=== PATIENT | female | born 1995 | race Caucasian/White ===

== ENCOUNTER 2022-05-15 10:34 | Outpatient (CLI) | payer MEDICAID, SELFPAY ==
--- NOTE | ~2022-05-15 | US_ITS ---
EXAMINATION: US OB follow up DATE: 05/15/2022 13:03 INDICATION: Amenorrhea. Positive test. TECHNIQUE: Real-time ultrasound of the pelvis was performed. COMPARISON: None. FINDINGS: There is a single living fetus in vertex presentation. The placenta is posterior and fundal. h eart rate is 138 beats per minute (bpm). The amniotic fluid index is 18.6 cm, which is normal, which is normal. The following biometric data were obtained: Biparietal diameter (BPD): 8.4 cm; head circumference (HC): 30.0 cm; abdominal circumference (AC): 30 .7 cm; femur length (FL): 6.3 cm. These measurements are concordant. Estimated weight is 2283 g +/- 342 g, which correlates with the >97th percentile when 10/07/22 is used as estimated date of delivery. As single measurements, these parameters are each equal to the following estimated gestational ages: BPD: 34 weeks 0 days. HC: 33 weeks 2 days. AC: 34 weeks 4 days. FL: 32 weeks 3 days. estimated gestational age based solely on measurements from this exam is 33 weeks 4 days +/- 2 weeks 2 days with estimated date of delivery of 06/29/22. IMPRESSION: 1. Single living fetus in vertex presentation. 2. Large for gestational age. estimated gestational age based solely on measurements from this exam is 33 weeks 4 days +/- 2 weeks 2 days with estimated date of delivery of 06/29/22. Reviewed, dictated and finalized at location [facility] IMPRESSION: 1. Single living fetus in vertex presentation. 2. Large for gestational age. estimated gestational age based solely on measurements from this exam is 33 weeks 4 days +/- 2 weeks 2 days with estimate d date of delivery of 06/29/22.
[2022-05-15 11:11] LABS: Basophils Absolute Auto 0.03 K/mm3 (0.00-0.10); Basophils Percent Auto 0.4 % (0.0-1.0); Eosinophils Percent Auto 1.3 % (1.0-6.0); Hematocrit 42.9 % (35.0-49.0); Hemoglobin 14.5 g/dL (12.0-15.0); Immature Granulocyte Absolute 0.04 K/mm3 (0.00-0.00); Immature Granulocyte Percent A 0.5 % (0.0-0.0); Lymphocytes Percent Auto 27.7 % (18.0-42.0); Mean Corpuscular HGB Conc 33.8 g/dL (32.0-36.0); Mean Corpuscular Hemoglobin 28.6 pg (27.0-31.0); Mean Corpuscular Volume 84.6 fL (78.0-102.0); Monocytes Absolute Auto 0.54 K/mm3 (0.10-0.90); Monocytes Percent Auto 6.8 % (2.0-11.0); Neutrophils Percent Auto 63.3 % (50.0-70.0); Platelet Count Result 222 K/mm3 (150-420); Red Blood Count 5.07 M/mm3 (4.20-5.40); Red Cell Distribution Width 12.3 % (11.6-14.4); White Blood Count 7.9 K/mm3 (4.8-10.8)
[2022-05-15 11:53] LABS: Alanine Aminotransferase 21 U/L (14-59); Albumin Level 2.6 g/dL (3.4-5.0); Alkaline Phosphatase 141 U/L (46-116); Anion Gap 5 mmol/L (8-16); Aspartate Amino Transferase 17 U/L (15-37); Bilirubin,Total 0.4 mg/dL (0.00-1.00); Blood Urea Nitrogen 12 mg/dL (7-18); Calcium 9.4 mg/dL (8.5-10.1); Carbon Dioxide 27 mmol/L (21-32); Chloride 105 mmol/L (98-108); Estimated Glomerular Filt Rate > 60; Glucose 91 mg/dL (70-99); Osmolality Calculated 283 mOsm/kg (285-295); Potassium 4.6 mmol/L (3.5-5.1); Sodium 137 mmol/L (136-145); Thyroid Stimulating Hormone 3.94 uIU/mL (0.36-3.74); Total Protein 6.2 g/dL (6.4-8.2)
[2022-05-17 17:23] LABS: Vitamin D 25 Hydroxy 16 ng/mL (30-100)
== END 2022-05-15 10:35 | disposition home or self-care (01) ==
PROVIDERS: PCP Internal Medicine; Visit Provider Nurse Practitioner Family
DX: Z36.9 Encounter for antenatal screening, unspecified (principal); O36.63X0 Maternal care for excessive fetal growth, third trimester, not applicable or unspecified
CPT/HCPCS: 36415; 76816; 80053; 82306; 84439; 84443; 84702; 85025; 86850; 86900; 86901

== ENCOUNTER 2022-05-17 19:18 | Emergency (ER) | payer MEDICAID, SELFPAY ==
[2022-05-17 19:27] VITALS: BP 172/106; PULSE 98; RESP 18; TEMP 36.7; O2SAT 98
[2022-05-17 19:44] VITALS: O2SAT 100
[2022-05-17 19:45] VITALS: O2SAT 99
[2022-05-17 19:46] VITALS: BP 150/105; O2SAT 99
[2022-05-17 19:49] VITALS: PULSE 98
[2022-05-17] MEDS: LABETALOL HCL 50 MG TABLET PO (19:49)
[2022-05-17 19:50] LABS: Basophils Absolute Auto 0.03 K/mm3 (0.00-0.10); Basophils Percent Auto 0.4 % (0.0-1.0); Eosinophils Absolute Auto 0.09 K/mm3 (0.02-0.50); Eosinophils Percent Auto 1.1 % (1.0-6.0); Hematocrit 42.7 % (35.0-49.0); Hemoglobin 14.6 g/dL (12.0-15.0); Immature Granulocyte Absolute 0.04 K/mm3 (0.00-0.00); Immature Granulocyte Percent A 0.5 % (0.0-0.0); Lymphocytes Absolute Auto 2.73 K/mm3 (1.10-4.50); Lymphocytes Percent Auto 32.7 % (18.0-42.0); Mean Corpuscular HGB Conc 34.2 g/dL (32.0-36.0); Mean Corpuscular Hemoglobin 28.8 pg (27.0-31.0); Mean Corpuscular Volume 84.2 fL (78.0-102.0); Mean Platelet Volume 11.9 fl (9.2-11.8); Monocytes Percent Auto 7.2 % (2.0-11.0); Neutrophils Absolute Auto 4.9 K/mm3 (1.7-7.2); Neutrophils Percent Auto 58.1 % (50.0-70.0); Platelet Count Result 223 K/mm3 (150-420); Red Blood Count 5.07 M/mm3 (4.20-5.40); Red Cell Distribution Width 12.3 % (11.6-14.4); White Blood Count 8.4 K/mm3 (4.8-10.8)
[2022-05-17 20:04] LABS: INR 0.9; Partial Thromboplastin Time 27.2 SEC (23.90-30.70); Prothrombin Time 10.3 Seconds (9.50-12.10)
[2022-05-17 20:06] LABS: Alanine Aminotransferase 21 U/L (14-59); Albumin Level 2.6 g/dL (3.4-5.0); Alkaline Phosphatase 141 U/L (46-116); Anion Gap 10 mmol/L (8-16); Aspartate Amino Transferase 17 U/L (15-37); Bilirubin,Total 0.4 mg/dL (0.00-1.00); Blood Urea Nitrogen 9 mg/dL (7-18); Calcium 9.2 mg/dL (8.5-10.1); Carbon Dioxide 24 mmol/L (21-32); Chloride 103 mmol/L (98-108); Estimated CRCL calculation 184 ml/min; Estimated Glomerular Filt Rate > 60; Glucose 90 mg/dL (70-99); Lactate Dehydrogenase 215 U/L (81-234); Osmolality Calculated 282 mOsm/kg (285-295); Sodium 137 mmol/L (136-145); Total Protein 6.7 g/dL (6.4-8.2); Uric Acid 5.9 mg/dL (2.6-6.0)
--- NOTE | 2022-05-17 20:13 | ED.GENADULT ---
HPI - General Adult General Chief complaint: Unspecified Stated complaint: high blood pressure and Source: patient and family Mode of arrival: ambulatory Limitations: no limitations History of Present Illness HPI narrative: is a 27-year-old female with some elevated blood pressure is currently 8 months and is due in June blood pressure has initially you have has been in the 150s to 170 systolic, the patient currently is asymptomatic with no headache no blurry vision no nausea vomiting no abdominal pain no flank pain no dysuria no chest pain or shortness of breath. Onset (ago): hour(s) Related Data Allergies Allergy/AdvReac Type Severity Reaction Status Date / Time No Known Allergies Allergy Verified 05/17/22 19:56 Review of Systems Review of Systems: All systems reviewed & are unremarkable except as noted in HPI and below PMFSH Past Medical History Medical History Hypertension affecting Exam Const: General: cooperative, healthy appearing, comfortable, no acute distress, well developed, alert and awake HENMT: Head: normal to inspection Ears: hearing grossly normal bilaterally Face/Nose/Sinus: Normal external nose present Face and sinus: normal facial exam Mouth: Yes Normal oral and palatal mucosa present Throat: posterior oropharynx normal Eyes: General: appearance normal, both eyes and all related structures Visual Coronado: normal visual coronado by confrontation Alignment and Position: alignment normal Periorbital: periorbital findings normal Eyelids: eyelids normal Conjunctivae: conjunctivae normal Sclera: sclerae normal Pupils: Equal, round and reactive pupils present EOM: EOMs intact bilaterally Neck: Neck: normal visual inspection, full ROM, no lymphadenopathy and no meningeal signs Chest: Chest palpation & inspection: normal inspection of the chest and normal palpation of entire chest wall Resp: Effort & Inspection: normal respiratory effort and able to speak in complete sentences Auscultation: clear to auscultation bilaterally Cardio: Jugular venous distension: no JVD Palpation: normal PMI Rate: regular rate Rhythm: regular rhythm Heart sounds: S1 normal heart sound present and S2 normal heart sound present GI: Inspection: normal to inspection : General: Yes bimanual renal exam normal bilaterally Urinary Catheter: Urinary Catheter: patent and draining Back/Spine/Pelvis: Back: no CVA tenderness Skin: General skin exam: normal color and no rashes or lesions noted Neuro: General: oriented to person, oriented to place, oriented to time and patient oriented x3 Extrem: General: normal to inspection, full ROM and capillary refill normal Right lower extremity: normal to inspection, full ROM and normal capillary refill Psych: Appearance: grossly normal Mental Status: mental status grossly normal Speech and movement: Normal speech and movement present Course Course Emergency Course: blood pressure has improved down to 149 systolic after she received a dose of p.o. labetalol, labs reviewed with patient and family which showed no evidence of HELLP syndrome, no evidence of preeclampsia patient is more comfortable and advised follow-up with geochemical manager. Vital Signs Vital signs: Vital Signs Temperature 36.7 C 05/17/22 19:27 Pulse Rate 98 05/17/22 19:27 Respiratory Rate 18 05/17/22 19:27 Blood Pressure 172/106 H 05/17/22 19:27 Pulse Oximetry 98 05/17/22 19:27 Oxygen Delivery Room Air 05/17/22 19:27 Temperature 36.7 C 05/17/22 19:27 Pulse Rate 98 05/17/22 19:49 Respiratory Rate 18 05/17/22 19:27 Blood Pressure 150/105 H 05/17/22 19:46 Pulse Oximetry 99 05/17/22 19:46 Oxygen Delivery Room Air 05/17/22 19:27 Medical Decision Making Vital Signs Vital Signs: Vital Signs Temperature 36.7 C 05/17/22 19:27 Pulse Rate 98 05/17/22 19:27 Respiratory Rate 18 0
[2022-05-17 20:29] VITALS: BP 132/106; PULSE 90; RESP 20; TEMP 36.7; O2SAT 100
== END 2022-05-17 20:32 | disposition home or self-care (01) ==
PROVIDERS: Emergency Provider Emergency Medicine; PCP Internal Medicine
DX: O16.3 Unspecified maternal hypertension, third trimester (principal); Z3A.00 Weeks of gestation of pregnancy not specified
CPT/HCPCS: 36415; 80053; 83615; 84550; 85025; 85610; 85730; 99283; A9270

== ENCOUNTER 2022-05-21 11:51 | Outpatient (CLI) | payer MEDICAID, SELFPAY ==
[2022-05-21] VITALS (19 sets, daily range): BP systolic 128–159; BP diastolic 72–103; PULSE 79–95
[2022-05-21 12:42] LABS: Basophils Percent Auto 0.3 % (0.2-1.2); Eosinophils Absolute Auto 0.1 K/mm3 (0-0.3); Eosinophils Percent Auto 1.7 % (0-4.4); Hematocrit 40.4 % (37.0-47.0); Immature Granulocyte Absolute 0.03 K/mm3 (0.00-0.031); Immature Granulocyte Percent A 0.4 % (0-0.5); Lymphocytes Absolute Auto 1.78 K/mm3 (0.9-3.2); Lymphocytes Percent Auto 23.1 % (18.3-44.2); Mean Corpuscular HGB Conc 34.7 g/dl (32-36); Mean Corpuscular Hemoglobin 28.6 pg (26-34); Mean Corpuscular Volume 82.6 fl (80-100); Mean Platelet Volume 12.1 fl (7.4-10.4); Monocytes Absolute Auto 0.5 K/mm3 (0.1-0.6); Monocytes Percent Auto 6.4 % (2.6-8.5); Neutrophils Absolute Auto 5.3 K/mm3 (1.3-6.7); Neutrophils Percent Auto 68.1 % (45.5-73.1); Platelet Count Result 194 k/mm3 (150-375); Red Blood Count 4.89 M/mm3 (4.2-5.4); Red Cell Distribution Width 12.6 % (11.5-14.5); White Blood Count 7.7 K/mm3 (4.5-10.0)
[2022-05-21 12:56] LABS: Alanine Aminotransferase 17 U/L (6-35); Albumin Level 3.2 g/dL (3.5-5.1); Alkaline Phosphatase 135 U/L (38-126); Anion Gap 4 mmol/L (8-16); Aspartate Amino Transferase 21 U/L (14-36); Bilirubin,Total 0.5 mg/dL (0.2-1.3); Blood Urea Nitrogen 5 mg/dL (7-17); Calcium 8.6 mg/dL (8.4-10.2); Carbon Dioxide 22 mmol/L (22-30); Chloride 105 mmol/L (98-107); Estimated Glomerular Filt Rate > 60; Glucose 124 mg/dL (65-110); Potassium 3.9 mmol/L (3.4-5.0); Sodium 131 mmol/L (137-145); Uric Acid 5.8 mg/dL (2.5-7.5)
[2022-05-21 12:58] LABS: Appearance Urine Slightly Cloudy (Clear); Bilirubin Urine Negative (Negative); Blood Urine 1+ (Negative); Color Urine Yellow (Yellow); Glucose Urine UA Negative (Negative); Ketones Urine Negative (Negative); Leukocyte Esterase Ur Negative LEU/UL (NEGATIVE); Nitrate Urine Negative (Negative); Protein Urine 3+ mg/dL (Negative); Specific Grav Ur >= 1.030 (1.001-1.035); Urobilinogen Urine 0.2 mg/dL (<2.0); pH Urine 5.5 (5.0-9.0)
[2022-05-21 13:04] LABS: Bacteria Urine Trace /hpf; Mucus Urine Few /lpf; Squamous Epithelial Cell Urine Many /hpf (Few); WBC Urine 21-30 /hpf (0-3)
[2022-05-21 13:05] LABS: Creatinine Urine 199.2 mg/dL
[2022-05-21 13:05] LABS: Add Urine Microscopic? YES
[2022-05-21] MEDS: NITROFURANTOIN MONOHYD MACROCR 100 MG CAP PO (13:36)
[2022-05-21 13:37] LABS: HIV 1/2 Ab P24 Ag Result Negative (Negative)
[2022-05-21 13:47] LABS: Total Protein Urine Random > 500 mg/dL
[2022-05-21 13:51] LABS: Hepatitis B Surface Antigen Negative (Negative); Rubella IgG Antibody 28.7 IU/ML
[2022-05-21] MEDS: LIDOCAINE HCL 1% LOCAL INJ 10 ML VIAL 2.1 ML XX (13:58)
[2022-05-21] MEDS: cefTRIAXone 1 GM VIAL IM (13:58)
[2022-05-21] MEDS: LABETALOL HCL 100 MG TABLET PO (13:59)
--- NOTE | 2022-05-21 15:38 | PC.NURSE ---
Dr. Perkins updated with blood pressures. MD ordered baby be on the monitor for 30 minutes with reactive tracing and continue watching blood pressure.
--- NOTE | 2022-05-21 16:33 | PC.NURSE ---
Dr. Perkins updated with pt blood pressures and tracing reviewed. Discharge orders received with prescriptions. Pt needs to schedule an appointment on Sat05/23/22 with the office. Severe preeclampsia precaution teaching.
[2022-05-21 16:44] LABS: Rapid Plasma Reagin Non-Reactive (NonReactive)
--- NOTE | 2022-05-21 17:01 | PC.NURSE ---
Severe preeclampsia teaching of signs and symptoms explained to the pt. Preeclampsia handout given to the pt as well. Pt instructed to call the office and schedule an appointment for sat05/23/22. Pt sent with prescription transmitted to pharmacy of labetalol and Macrobid.
== END 2022-05-21 17:05 | disposition home or self-care (01) ==
LOC: ANHOBOP 11:57 → ANHOBPP 11:59
PROVIDERS: PCP Internal Medicine; Visit Provider Obstetrics & Gynecology
DX: O99.891 Other specified diseases and conditions complicating pregnancy (principal); R03.0 Elevated blood-pressure reading, without diagnosis of hypertension
CPT/HCPCS: 36415; 80053; 81001; 82570; 84156; 84550; 85025; 86592; 86703; 86762; 86850; 86900; 86901; 87086; 87088; 87340; 96372; 99199; A9270; G0432; J0696

== ENCOUNTER 2022-05-24 11:35 | Outpatient (CLI) | payer MEDICAID, SELFPAY ==
[2022-05-24] VITALS (138 sets, daily range): BP systolic 114–185; BP diastolic 67–113; PULSE 75–101; RESP 18–22; TEMP 36.8; O2SAT 96–100; BMI 50.9
[2022-05-24 12:19] LABS: Basophils Percent Auto 0.4 % (0.2-1.2); Eosinophils Absolute Auto 0.1 K/mm3 (0-0.3); Eosinophils Percent Auto 1.7 % (0-4.4); Hematocrit 40.2 % (37.0-47.0); Hemoglobin 13.2 g/dL (12.0-15.0); Immature Granulocyte Absolute 0.03 K/mm3 (0.00-0.031); Immature Granulocyte Percent A 0.4 % (0-0.5); Lymphocytes Absolute Auto 2.07 K/mm3 (0.9-3.2); Lymphocytes Percent Auto 26.3 % (18.3-44.2); Mean Corpuscular HGB Conc 32.8 g/dl (32-36); Mean Corpuscular Hemoglobin 29.1 pg (26-34); Mean Corpuscular Volume 88.5 fl (80-100); Mean Platelet Volume 12.3 fl (7.4-10.4); Monocytes Absolute Auto 0.7 K/mm3 (0.1-0.6); Monocytes Percent Auto 8.5 % (2.6-8.5); Neutrophils Absolute Auto 4.9 K/mm3 (1.3-6.7); Neutrophils Percent Auto 62.7 % (45.5-73.1); Platelet Count Result 175 k/mm3 (150-375); Red Blood Count 4.54 M/mm3 (4.2-5.4); Red Cell Distribution Width 12.8 % (11.5-14.5); White Blood Count 7.9 K/mm3 (4.5-10.0)
[2022-05-24 12:30] LABS: Alanine Aminotransferase 18 U/L (6-35); Albumin Level 3.1 g/dL (3.5-5.1); Alkaline Phosphatase 135 U/L (38-126); Anion Gap 3 mmol/L (8-16); Aspartate Amino Transferase 32 U/L (14-36); Bilirubin,Total 0.5 mg/dL (0.2-1.3); Blood Urea Nitrogen 10 mg/dL (7-17); Calcium 8.7 mg/dL (8.4-10.2); Carbon Dioxide 21 mmol/L (22-30); Chloride 105 mmol/L (98-107); Estimated Glomerular Filt Rate > 60; Glucose 118 mg/dL (65-110); Potassium 4.2 mmol/L (3.4-5.0); Sodium 129 mmol/L (137-145); Uric Acid 5.9 mg/dL (2.5-7.5)
[2022-05-24] MEDS: LABETALOL HCL INJ 100 MG/20 ML VIAL 20 MG IV PUSH ×2 (12:35→15:49)
[2022-05-24] MEDS: LABETALOL HCL INJ 100 MG/20 ML VIAL 40 MG IV PUSH ×2 (12:52→17:02)
[2022-05-24] MEDS: BETAMETHASONE SOD PHOS/ACETATE 30 MG/5 ML VIAL 12 MG IM (12:55)
--- NOTE | 2022-05-24 13:07 | OBADM ---
This patient, Naina Perales, admitted to the OB room OB Post 116 for observation. Patient/family oriented to hospital policies and general routines including ID bracelet, bed and alarms, visiting hours, pain management, procedures, bathroom and other care routines, personal items, smoking policy, room service/diet, and visiting hours. Patient/Family are encouraged to report perceived risks to care and to ask questions if they do not understand what they are told or what they should do.
--- NOTE | 2022-05-24 13:07 | PC.NURSE ---
1225- Dr. Perkins notified of patients blood pressure, start labetalol protocol. 1238- Alok Ha [facility] ordered to give patient celestone.
--- NOTE | 2022-05-24 13:29 | PC.NURSE ---
1327- Dr. Perkins notified of blood pressure and lab results. Start magnesium.
[2022-05-24] MEDS: LABETALOL HCL INJ 100 MG/20 ML VIAL 80 MG IV PUSH (13:32)
[2022-05-24] MEDS: LACTATED RINGERS 1,000 ML 75 ML IV CONT (13:50)
[2022-05-24] MEDS: MAGNESIUM SULF 4 GM/WATER100ML 4 GM/100 ML BAG IVPB (13:50)
[2022-05-24 14:01] LABS: Appearance Urine Clear (Clear); Bilirubin Urine Negative (Negative); Blood Urine 1+ (Negative); Color Urine Yellow (Yellow); Glucose Urine UA Negative (Negative); Ketones Urine 1+ mg/dL (Negative); Leukocyte Esterase Ur Trace LEU/UL (NEGATIVE); Nitrate Urine Negative (Negative); Protein Urine 3+ mg/dL (Negative); Specific Grav Ur >= 1.030 (1.001-1.035); Urobilinogen Urine 0.2 mg/dL (<2.0)
[2022-05-24 14:02] LABS: Bacteria Urine Trace /hpf; Mucus Urine Rare /lpf; Squamous Epithelial Cell Urine Many /hpf (Few); Transitional Epi Cells Urine Rare /hpf (None Seen); WBC Urine 21-30 /hpf (0-3)
[2022-05-24] MEDS: MAGNESIUM SULF 20GM/WATER500ML 500 ML 50 MG IV CONT (14:20)
[2022-05-24 14:24] LABS: Creatinine Urine 180.2 mg/dL
[2022-05-24 14:37] LABS: Add Urine Microscopic? YES
[2022-05-24 15:39] LABS: Total Protein Urine Random > 600 mg/dL
[2022-05-24] MEDS: NIFEdipine 30 MG TAB.ER.24 60 MG PO (16:00)
[2022-05-24] MEDS: hydrALAZINE HCL 20 MG/ML VIAL 5 MG IV PUSH (17:37)
--- NOTE | 2022-05-24 17:53 | PM.IMHP ---
H&P: HPI History of Present Illness Date/Time: 05/24/22 17:53 Chief Complaint: Severe preeclampsia Narrative: 27-year-old female 1 At 34 weeks and 6 days with late care and dated by 3rd trimester ultrasound. who presents for elevated blood pressures in the office. She has severe range blood pressures. She was observed in Labor and delivery. Labs were obtained. There is centrally unchanged from previous day though platelets were lower. Blood pressures were difficult to control. We were armed able to control it for any length of time with Labetalol severe hypertension management algorithm. we eventually maxed out on labetalol and began hydralazine protocol. We discussed the case with Maternal Medicine. We instructed to give 10 of hydralazine and then 10 of Procardia if elevated blood pressures persisted. Earlier in the day 60 of Procardia XL was given. Magnesium sulfate was started earlier in the day when blood pressures could not be brought down of the 160s. Steroids were also given. After discussing the case with Dr. Espinoza and we agreed to transport the patient. She is dated by a very late ultrasound. It was a 33 week ultrasound. So she has unsure dates. Review of Systems Review of Systems: All systems reviewed & are unremarkable except as noted in HPI and below Constitutional: Constitutional: Denies chills, Denies fatigue, Denies fever(s) and Denies weakness Eyes: Eyes: Denies blurry vision, Denies change in vision, Denies loss of peripheral vision, Denies loss of vision, Denies other visual disturbances and Denies eye pain ENT: Denies vertigo, Denies dizziness, Denies hearing loss, Denies mouth pain, Denies nasal obstruction, Denies neck mass and Denies neck pain Cardiovascular: Cardiovascular: Denies chest pain, Denies diaphoresis, Denies syncope, Denies leg edema and Denies dyspnea Respiratory: Respiratory: Denies chest congestion, Denies cough, Denies hemoptysis, Denies dyspnea and Denies wheezing Gastrointestinal: Gastrointestinal: Denies abdominal pain, Denies constipation, Denies diarrhea, Denies nausea and Denies vomiting Genitourinary: Genitourinary: Denies hematuria, Denies change in libido, Denies nocturia, Denies genital lesions, Denies flank pain and Denies urinary urgency Musculoskeletal: Musculoskeletal: Denies abnormal gait, Denies back pain, Denies myalgias, Denies arthralgias, Denies joint swelling, Denies muscle weakness and Denies neck pain Integumentary/Breasts: Skin/Breast: Denies swelling, Denies breast pain, Denies breast mass, Denies dry skin, Denies nipple discharge, Denies unusual bruising and Denies jaundice Neurologic: Denies Neuro-related abnormal movements, Denies Abnormal speech present, Denies abnormal gait, Denies behavioral changes, Denies confusion, Denies vertigo, Denies dizziness, Denies syncope, Denies loss of vision, Denies memory loss, Denies convulsions and Denies weakness Psychiatric: Psychiatric: Denies abnormal sleep pattern, Denies behavioral changes, Denies change in libido, Denies confusion, Denies depression, Denies anhedonia and Denies memory loss Endocrine: Endocrine: Reports no additional endocrine complaints, Denies change in libido and Denies fatigue Hematologic/Lymphatic: Hematologic/Lymphatic: Reports no additional hematologic/lymphatic complaints Allergic/Immunologic: Allergic/Immunologic: Reports no additional allergic/immunologic complaints and Denies wheezing PMFSH Past Medical History Medical History Hypertension affecting Meds Home Medications and Allergies Home Medications Medication Instructions Recorded Confirmed Type labetalol 100 mg tablet 100 mg PO Q12H 60 days #60 tabs 05/21/22 05/24/22 Rx nitrofurantoin 100 mg PO Q12H 7 days #14 caps 05/21/22 05/24/22 Rx monohydrate/macrocrystals 100 mg capsule (Macrobid) Allergies Allergy/AdvReac Type Severity R
[2022-05-24] MEDS: hydrALAZINE HCL 20 MG/ML VIAL 10 MG IV PUSH (18:05)
[2022-05-24] MEDS: NIFEdipine 10 MG CAPSULE PO ×2 (18:27→18:49)
--- NOTE | 2022-05-24 19:21 | PC.NURSE ---
[facility] transport team arrived at 1837 to cook pickled meat pt. Report and all pt's medical records given to Soni DÍAZ. Pt transferred to the stretcher without difficulty. Pt and transport team left facility at 1855.
== END 2022-05-24 18:55 | disposition short-term general hospital (02) ==
LOC: ANHOBOP 11:39 → ANHOBPP 11:40
PROVIDERS: Advanced Practice Midwife; PCP Internal Medicine; Visit Provider Obstetrics & Gynecology
DX: O13.9 Gestational [pregnancy-induced] hypertension without significant proteinuria, unspecified trimester (principal); O09.30 Supervision of pregnancy with insufficient antenatal care, unspecified trimester; Z3A.00 Weeks of gestation of pregnancy not specified
CPT/HCPCS: 36415; 80053; 81001; 82570; 84156; 84550; 85025; 87086; 87088; 99199; A9270; J0360; J0702; J3475; J7120

== ENCOUNTER 2022-10-15 12:04 | Emergency (ER) | payer OTHER, SELFPAY ==
[2022-10-15 12:16] VITALS: BP 147/87; PULSE 89; RESP 16; TEMP 36.6; O2SAT 98
--- NOTE | 2022-10-15 12:21 | ED.URI ---
HPI - URI/Sore Throat General Chief Complaint: Upper Respiratory Infection Stated Complaint: Sinus, conjestion, cough, ears cloudy Time Seen by Provider: 10/15/22 12:21 Source: patient and RN notes reviewed Mode of arrival: ambulatory Limitations: no limitations History of Present Illness HPI Narrative: 27 y/o female presented for c/o sinus pressure and congestion with cough intermittently for about 2 weeks. Cough is nonproductive, reports post nasal drainage. Endorses left ear pressure started 4 days ago. Taking DayQuil and NyQuil for symptoms. Denies tinnitus, dizziness, cp, sob, n/v/d/f/c. MD elicited complaint: cough Related Data Allergies Allergy/AdvReac Type Severity Reaction Status Date / Time No Known Allergies Allergy Verified 10/15/22 12:17 Review of Systems Review of Systems: CONSTITUTIONAL: Denies malaise, chills, sweats, fever EYES: Denies visual changes, redness, or discharge ENT: Reports rhinorrhea, congestion, sinus pain, otalgia CARDIOVASCULAR: Denies chest pain, palpitations, edema RESPIRATORY: Reports cough, post nasal drainage. Denies dyspnea GASTROINTESTINAL: Denies abdominal pain, nausea, vomiting, diarrhea SKIN: Denies rash or itching MUSCULOSKELETAL: Denies myalgia NEUROLOGIC: Denies headache PMFSH Past Medical History Medical History Hypertension affecting Exam Narrative: GENERAL: mildly Ill-appearing, nontoxic no acute distress. HEAD: Normocephalic EYES: PERRLA, conjunctivae clear ENT: Mucous membranes moist. TM pearly keating with dull light reflex bilaterally; no tragal tenderness. Oropharynx without erythema, lesions or exudate, no drooling, no hoarseness, no trismus, uvula midline. NECK: Supple. No lymphadenopathy CHEST: Clear to auscultation, breath sounds equal. No wheezing, rhonchi, rales, or stridor. No respiratory distress, speaks in full sentences. HEART: Regular rate and rhythm. No murmur heard. SKIN: Warm, dry, erythematous scaly rash to forehead, temples NEURO: Alert and oriented x3. PSYCH: Normal mood and affect Course Course Emergency Course: Patient is aware of diagnosis, understands and agrees to treatment plan. Anticipatory guidance given. Patient agrees to follow-up as directed and is aware of reasons to seek care at the emergency department. Portions of this record may have been created with voice recognition software Level of Care: Express Care Visit Vital Signs Vital signs: Vital Signs Temperature 97.9 F 10/15/22 12:16 Pulse Rate 89 10/15/22 12:16 Respiratory Rate 16 10/15/22 12:16 Blood Pressure 147/87 H 10/15/22 12:16 Pulse Oximetry 98 10/15/22 12:16 Temperature 97.9 F 10/15/22 12:16 Pulse Rate 89 10/15/22 12:16 Respiratory Rate 16 10/15/22 12:16 Blood Pressure 147/87 H 10/15/22 12:16 Pulse Oximetry 98 10/15/22 12:16 reviewed MDM - URI/Sore Throat MDM Narrative Medical decision making narrative: Discussed physical exam findings. Advised supportive measures and signs/symptoms to go to the ER. Pt is appropriate for outpt treatment and f/u. Differential Diagnosis Differential diagnosis: Likely upper respiratory infection, sinusitis and viral infection Discharge Plan Discharge Clinical Impression: Upper respiratory infection Qualifiers: URI type: unspecified URI Qualified Code(s): J06.9 - Acute upper respiratory infection, unspecified Patient Disposition: Home, Self-Care Condition: Stable Instructions: Antibiotic Form, Upper Respiratory Infection (ED) Additional Instructions: Your blood pressure reading was elevated (above 120/80) please follow-up with your primary care provider for further evaluation and management. If you develop worsening Blood Pressure symptoms, (headache, vision changes, dizziness, vomiting, chest pain, etc) go to the ER. Call 911. Recommend Flonase spray and Zyrtec (or Claritin/Loreto) over the cou
== END 2022-10-15 12:33 | disposition home or self-care (01) ==
PROVIDERS: Emergency Provider Nurse Practitioner Family; PCP Internal Medicine
DX: J06.9 Acute upper respiratory infection, unspecified (principal)
CPT/HCPCS: 99213; G0463

== ENCOUNTER 2024-03-13 07:21 | Emergency (ER) | payer OTHER, SELFPAY ==
[2024-03-13 07:23] VITALS: BP 148/90; PULSE 98; RESP 18; TEMP 37.1; O2SAT 100
--- NOTE | 2024-03-13 07:27 | ED_ITS ---
HPI - Skin/Abscess/Foreign Bdy General Chief complaint: Eye Problems Stated complaint: swelling around the left eye Source: patient Mode of arrival: ambulatory Limitations: no limitations History of Present Illness HPI narrative: the patient is a 29-year-old female with a left eyelid swelling and pain. There is redness. This started yesterday. No eye ball involvement or pain. She can move her eye without difficulty or pain. complaint: rash Onset (ago): day(s) (2) Tetanus up to date: unsure Location: face ( Left eyelid upper) Severity: moderate Severity scale (1-10): 4 Quality: burning and sharp Pain Consistency: constant Relieving factors: none Exacerbating factors: other ( significant psoriasis on her forehead and left face with excoriation) Context: other ( patient has left eyelid inflammation without eye ball involvement) Associated symptoms: denies other symptoms Treatments prior to arrival: none Related Data Allergies Allergy/AdvReac Type Severity Reaction Status Date / Time No Known Allergies Allergy Verified 03/13/24 07:37 Review of Systems Review of Systems: All systems reviewed & are unremarkable except as noted in HPI and below Constitutional: Constitutional: Reports no additional constitutional complaints Eyes: Eyes: Reports no additional eye complaints ENT: Reports system reviewed and no additional complaints, except as documented Cardiovascular: Cardiovascular: Reports no additional cardiovascular complaints Respiratory: Respiratory: Reports no additional respiratory complaints Gastrointestinal: Gastrointestinal: Reports no additional gastrointestinal complaints Genitourinary: Genitourinary: Reports no additional female genitourinary complaints Musculoskeletal: Musculoskeletal: Reports no additional musculoskeletal complaints Integumentary/Breasts: Skin/Breast: Reports system reviewed and no additional complaints, except as docu Neurologic: Reports system reviewed and no additional complaints, except as documented Psychiatric: Psychiatric: Reports no additional psychiatric complaints Endocrine: Endocrine: Reports no additional endocrine complaints Hematologic/Lymphatic: Hematologic/Lymphatic: Reports no additional hematologic/lymphatic complaints Allergic/Immunologic: Allergic/Immunologic: Reports no additional allergic/immunologic complaints PMFSH Past Medical History Medical History Hypertension affecting Exam Const: General: healthy appearing Nutritional Appearance: well nourished Orientation/consciousness: patient oriented x3 HENMT: Head: normal to inspection Ears: external ears normal Face/Nose/Sinus: Normal external nose present Eyes: Conjunctivae: conjunctivae normal Pupils: Equal, round and reactive pupils present EOM: EOMs intact bilaterally Neck: Neck: normal visual inspection Chest: Chest palpation & inspection: normal inspection of the chest Resp: Effort & Inspection: normal respiratory effort and not labored Auscultation: clear to auscultation bilaterally and no crackles Cardio: Rate: regular rate Rhythm: regular rhythm Heart sounds: no murmurs GI: Inspection: non-distended GI Palp: Yes Soft to palpation and No Tenderness to palpation present (GI) Auscultation: normal bowel sounds : General: Yes bladder normal to palpation Back/Spine/Pelvis: Back: no CVA tenderness Skin: General skin exam: normal color Rashes: rash noted Wounds: no wounds Other: left upper eyelid is swollen and inflamed with cellulitis appearance and no abscess; to a lesser degree the lower eyelid on the left similar appearance; 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 for this patient and she has a construction carpenters helper appointment Neuro: General: patient oriented x3 Cranial nerves: Yes Nystagmus not present Speech: normal speech Gait exam (Neuro): Normal gait present Extrem: General: normal to inspection Psych: Mental Status: mental status grossly normal Affect: normal affect Attitude: cooperative Course Vital Signs Vital signs: Vital Signs Temperature 37.1 C 03/13/24 07:23 Pulse Rate 98 03/13/24 07:23 Respiratory Rate 18 03/13/24 07:23 Blood Pressure 148/90 H 03/13/24 07:23 Pulse Oximetry 100 03/13/24 07:23 Oxygen Delivery Room Air 03/13/24 07:23 Temperature 37.1 C 03/13/24 07:23 Pulse Rate 98 03/13/24 07:23 Respiratory Rate 18 03/13/24 07:23 Blood Pressure 148/90 H 03/13/24 07:23 Pulse Oximetry 100 03/13/24 07:23 Oxygen Delivery Room Air 03/13/24 07:23 MDM - Skin/Abscess/Foreign Bdy MDM Narrative Medical decision making narrative: patient is a 29-year-old female with a left eyelid cellulitis of periorbital. We will give antibiotics. Discharge Plan Discharge Clinical Impression: Cellulitis, periorbital Qualifiers: Laterality: left Qualified Code(s): L03.213 - Periorbital cellulitis Patient Disposition: Home, Self-Care Condition: Stable Instructions: Antibiotic Form, Periorbital Cellulitis (ED) Additional Instructions: please follow-up with primary doctor in the next week. Please follow-up with the construction carpenters helper as planned. If the eyeball becomes painful please seek medical attention right away. Prescriptions: New amoxicillin-pot clavulanate 875-125 mg tablet 1 tablet PO BID 10 Days Qty: 20 0RF Follow-up/Referrals: Lian Tirado MD [Primary Care Provider] - Time of Disposition: 07:44
== END 2024-03-13 07:54 | disposition home or self-care (01) ==
LOC: CHSED 07:50
PROVIDERS: Emergency Provider Emergency Medicine; PCP Internal Medicine
DX: L03.213 Periorbital cellulitis (principal)
CPT/HCPCS: 99283